=== PATIENT | female | born 1970 | race Caucasian/White ===

== ENCOUNTER 2018-07-22 09:52 | Emergency (ER) | payer OTHER ==
[~2018-07-22] VITALS: Ht 162.6 cm; Wt 86.2 kg
[2018-07-22 11:14] LABS: Basophils # (auto) 0.1 uL; Basophils % (auto) 1.1 % (0.0-2.0); Eosinophils # (auto) 0.2 uL; Eosinophils % (auto) 2.7 % (0.0-7.0); Hematocrit 42.5 % (36.0-46.0); Hemoglobin 14.6 g/dL (12.2-16.2); Lymphocytes % (auto) 27.2 % (10.0-50.0); Mean Corpuscular Hemoglobin 30.4 pg (28.0-32.0); Mean Corpuscular Hgb Conc. 34.3 g/dL (32.0-36.0); Mean Corpuscular Volume 88.7 fL (80.0-100.0); Monocytes # (auto) 0.5 uL; Monocytes % (auto) 6.9 % (0.0-12.0); Neutrophils # (auto) 4.5 uL; Neutrophils % (auto) 62.1 % (37.0-80.0); Nucleated Red Blood Cells % 0.2 %; Platelet Count (auto) 270 10^3/uL (140-450); Red Cell Distribution Width 13.7 % (11.8-14.3); White Blood Cell 7.3 10^3/uL (4.4-10.8)
[2018-07-22 11:30] LABS: Alanine Aminotransferase 47 U/L (13-56); Albumin 3.5 g/dL (3.4-5.0); Alkaline Phosphatase 64 U/L (45-117); Anion Gap 10 (5-15); Aspartate Aminotransferase 24 U/L (15-37); BUN/Creatinine Ratio 9.8; Bilirubin, Total 0.4 mg/dL (0.2-1.0); Blood Urea Nitrogen 9 mg/dL (7-18); Calcium 8.2 mg/dL (8.5-10.1); Carbon Dioxide 21 mmol/L (21-32); Chloride 108 mmol/L (98-107); GFR African American 84 mL/min; GFR Non-African American 69 mL/min; Glucose 140 mg/dL (74-106); Magnesium 2.3 mg/dL (1.6-2.6); Potassium 3.9 mmol/L (3.5-5.1); Sodium 139 mmol/L (136-145); Total Protein 7.1 g/dL (6.4-8.2)
[2018-07-22 11:39] VITALS: BP 117/75
[2018-07-22] MEDS ORDERED: ACETAMINOPHEN 325 MG TAB PO ONE (12:00)
== END 2018-07-22 12:47 | disposition home or self-care (01) ==
LOC: ER 09:52
DX: R07.89 Other chest pain (principal); G43.909 Migraine, unspecified, not intractable, without status migrainosus; E78.5 Hyperlipidemia, unspecified; Z90.49 Acquired absence of other specified parts of digestive tract; Z90.89 Acquired absence of other organs; Z90.710 Acquired absence of both cervix and uterus
CPT/HCPCS: 36415; 70450; 71046; 80053; 83735; 84484; 85025; 93005; 94761

== ENCOUNTER 2020-05-18 21:55 | Inpatient (IN) | payer OTHER ==
[~2020-05-18] VITALS: Ht 162.6 cm; Wt 81.6 kg
[2020-05-19 00:48] LABS: Basophils # (auto) 0 10 ^3/uL (0-0.2); Basophils % (auto) 0.4 % (0.0-2.0); Eosinophils # (auto) 0 10 ^3/uL (0-0.8); Eosinophils % (auto) 0.5 % (0.0-7.0); Lymphocytes # (auto) 1.4 10 ^3/uL (0.4-5.4); Lymphocytes % (auto) 28.5 % (10.0-50.0); Mean Corpuscular Hemoglobin 29.8 pg (28.0-32.0); Mean Corpuscular Hgb Conc. 34.2 g/dL (32.0-36.0); Mean Corpuscular Volume 87.2 fL (80.0-100.0); Monocytes # (auto) 0.4 10 ^3/uL (0-1.3); Monocytes % (auto) 8.3 % (0.0-12.0); Neutrophils % (auto) 62.3 % (37.0-80.0); Nucleated Red Blood Cells % 0.2 %; Platelet Count (auto) 161 10^3/uL (140-450); Red Blood Cells 5.38 10^6/uL (4.0-5.20); Red Cell Distribution Width 13.6 % (11.8-14.3); White Blood Cell 4.8 10^3/uL (4.4-10.8)
[2020-05-19 01:09] LABS: Albumin 3.8 g/dL (3.4-5.0); Anion Gap 6 (5-15); Blood Urea Nitrogen 11 mg/dL (7-18); Calcium 8.7 mg/dL (8.5-10.1); Carbon Dioxide 25 mmol/L (21-32); Chloride 102 mmol/L (98-107); Glucose 233 mg/dL (74-106); Magnesium 2.4 mg/dL (1.6-2.6); Potassium 3.3 mmol/L (3.5-5.1); Sodium 133 mmol/L (136-145)
[2020-05-19 01:11] LABS: Alanine Aminotransferase 97 U/L (13-56); BUN/Creatinine Ratio 11.1; GFR African American 77 mL/min; GFR Non-African American 63 mL/min
[2020-05-19 01:16] LABS: Alkaline Phosphatase 75 U/L (45-117); Aspartate Aminotransferase 53 U/L (15-37); Bilirubin, Total 0.9 mg/dL (0.2-1.0); Total Protein 8.5 g/dL (6.4-8.2)
[2020-05-19] MEDS ORDERED: SODIUM CHLORIDE 0.9% 1,000 ML IV SCH (06:32)
[2020-05-19] MEDS ORDERED: DEXTROSE (50%) 50ML SYRG IV PRN (06:45)
[2020-05-19] MEDS ORDERED: ALBUTEROL SULF 2.5 MG/0.5ML(0.5%) NEB SOLN NEB PRN (06:45)
[2020-05-19] MEDS ORDERED: DOCUSATE SOD 100 MG CAP PO PRN (06:45)
[2020-05-19] MEDS ORDERED: METOCLOPRAMIDE HCL 5MG/ml INJ 2ml VIAL IV PRN (06:45)
[2020-05-19] MEDS ORDERED: MORPHINE SULF INJ 2 MG/ML SYRINGE 1ML IV PRN ×2 (06:45→14:30)
[2020-05-19] MEDS ORDERED: IPRATROPIUM BROM 0.5 MG/2.5ML INH SOL NEB PRN (06:45)
[2020-05-19] MEDS: ACETAMINOPHEN 325 MG TAB PO PRN (09:43)
[2020-05-19] MEDS ORDERED: methylPREDNISolone SOD SUCC 125 MG/2 ML VL IV SCH (10:00)
[2020-05-19 10:26] LABS: Basophils # (auto) 0 10 ^3/uL (0-0.2); Basophils % (auto) 0.3 % (0.0-2.0); Eosinophils # (auto) 0 10 ^3/uL (0-0.8); Eosinophils % (auto) 0.7 % (0.0-7.0); Hematocrit 44.6 % (36.0-46.0); Hemoglobin 15.2 g/dL (12.2-16.2); Lymphocytes # (auto) 1.3 10 ^3/uL (0.4-5.4); Lymphocytes % (auto) 35.1 % (10.0-50.0); Mean Corpuscular Hemoglobin 29.4 pg (28.0-32.0); Mean Corpuscular Volume 86.4 fL (80.0-100.0); Monocytes # (auto) 0.4 10 ^3/uL (0-1.3); Monocytes % (auto) 10.3 % (0.0-12.0); Neutrophils % (auto) 53.6 % (37.0-80.0); Nucleated Red Blood Cells % 0.2 %; Platelet Count (auto) 146 10^3/uL (140-450); Red Blood Cells 5.16 10^6/uL (4.0-5.20); Red Cell Distribution Width 13.3 % (11.8-14.3); White Blood Cell 3.7 10^3/uL (4.4-10.8)
[2020-05-19 10:43] LABS: Anion Gap 7 (5-15); Blood Urea Nitrogen 12 mg/dL (7-18); Calcium 8.9 mg/dL (8.5-10.1); Carbon Dioxide 25 mmol/L (21-32); Chloride 102 mmol/L (98-107); Glucose 164 mg/dL (74-106); Sodium 134 mmol/L (136-145)
[2020-05-19 10:45] LABS: Partial Thromboplastin Time 26.1 sec (23.64-32.05)
[2020-05-19 10:48] LABS: GFR African American 98 mL/min; GFR Non-African American 81 mL/min
[2020-05-19] MEDS: ACCU-CHEK COMFORT CURVE STRIP VI SCH ×3 (12:00→23:56)
[2020-05-19] MEDS: InsuLIN REG 1unit/0.01ml Soln (100units/ml) SC SCH ×3 (12:00→23:56)
[2020-05-19] MEDS ORDERED: POTASSIUM EFFERVESENT TAB 25 MEQ PO ONE (12:15)
[2020-05-19] MEDS ORDERED: ONDANSETRON HCL 4 MG/2 ML VIAL ONE (12:34)
[2020-05-19] MEDS: HYDROcodone-ACET 5/325MG TAB PO PRN ×2 (12:53→18:50)
[2020-05-19] MEDS: ONDANSETRON HCL 4 MG/2 ML VIAL IV PRN (12:53)
[2020-05-19] MEDS ORDERED: DOXYCYCLINE 100 MG TAB/CAP PO ONE (14:30)
[2020-05-19] MEDS ORDERED: POTASSIUM CHL 10 Meq TABLET PO ONE (14:30)
[2020-05-19] MEDS ORDERED: FUROSEMIDE 20 MG/2 ML VIAL IV ONE (14:30)
--- NOTE | 2020-05-19 16:37 | NUR ---
1605 05/19/20 - Contacted [facility] at [phone] requesting authorization for continued inpatient stay. Spoke with quality assurance analyst Latha who stated patient is authorized continued inpatient stay.
[2020-05-19] MEDS ORDERED: INSULIN LANTUS (GLARGINE) 1 /0.01ml (100units/ml) SC SCH (22:00)
[2020-05-19] MEDS: DOXYCYCLINE 100 MG TAB/CAP PO SCH (23:55)
[2020-05-19] MEDS: DexAMETHasone 4 MG TAB PO SCH (23:55)
[2020-05-20] MEDS: InsuLIN REG 1unit/0.01ml Soln (100units/ml) SC SCH ×3 (05:56→17:23)
[2020-05-20] MEDS: ACCU-CHEK COMFORT CURVE STRIP VI SCH ×3 (05:57→18:04)
[2020-05-20 06:37] LABS: Magnesium 2.5 mg/dL (1.6-2.6)
[2020-05-20] MEDS: POTASSIUM CHL 10 Meq TABLET PO SCH (11:15)
[2020-05-20] MEDS: FUROSEMIDE 20 MG/2 ML VIAL IV SCH (11:15)
[2020-05-20] MEDS: DexAMETHasone 4 MG TAB PO SCH ×2 (11:15→22:31)
[2020-05-20] MEDS: DOXYCYCLINE 100 MG TAB/CAP PO SCH ×2 (11:16→22:31)
[2020-05-20] MEDS: ACETAMINOPHEN 325 MG TAB PO PRN (11:17)
[2020-05-20] MEDS: HYDROcodone-ACET 5/325MG TAB PO PRN (12:40)
[2020-05-20] MEDS: ONDANSETRON HCL 4 MG/2 ML VIAL IV PRN ×2 (12:40→22:33)
[2020-05-20] MEDS ORDERED: LORazepam 2MG/ML-1ML VIAL IV ONE (14:00)
[2020-05-20] MEDS ORDERED: ZINC SULFATE 220mg CAP or TAB PO ONE ×2 (15:30→16:30)
[2020-05-20] MEDS ORDERED: CHOLECALCIFEROL (VITD3) 1,000UNIT=25mCg TAB PO ONE ×2 (15:30→16:30)
[2020-05-20] MEDS ORDERED: ASCORBIC ACID 500 MG TAB PO ONE ×2 (15:30→16:30)
[2020-05-20] MEDS ORDERED: ENOXAPARIN SOD 100 MG/1 ML SYRINGE SC ONE ×2 (15:30→16:30)
[2020-05-20] MEDS ORDERED: ACETAMINOPHEN 650 mg PER 20 mL UD PO ONE (16:30)
[2020-05-20] MEDS ORDERED: diphenhdrAMINE HCL 50 MG/1 ML VL IV ONE (16:30)
[2020-05-20] MEDS ORDERED: methylPREDNISolone SOD SUCC 40 MG/ML VL IV ONE (16:30)
[2020-05-20] MEDS ORDERED: TOCILIZUMAB 400 MG in SODIUM CHL 0.9% 80 ML IV ONE (17:00)
--- NOTE | 2020-05-20 17:29 | NUR ---
1600 05/20/20 - Contacted [facility] at [phone], requesting authorization for continued inpatient stay. Spoke with epic analyst Dino who stated there were no COVID beds available and provided authorization [id number] for continued inpatient stay.
[2020-05-20] MEDS ORDERED: INSULIN LANTUS (GLARGINE) 1 /0.01ml (100units/ml) SC SCH (22:00)
[2020-05-20] MEDS: ENOXAPARIN SOD 100 MG/1 ML SYRINGE SC SCH (22:32)
[2020-05-21] MEDS: InsuLIN REG 1unit/0.01ml Soln (100units/ml) SC SCH ×5 (00:11→23:32)
[2020-05-21] MEDS: HYDROcodone-ACET 5/325MG TAB PO PRN ×2 (00:12→19:49)
[2020-05-21] MEDS: ACCU-CHEK COMFORT CURVE STRIP VI SCH ×5 (00:12→23:32)
[2020-05-21 08:35] LABS: Basophils # (auto) 0 10 ^3/uL (0-0.2); Basophils % (auto) 0.4 % (0.0-2.0); Eosinophils # (auto) 0 10 ^3/uL (0-0.8); Hematocrit 43.4 % (36.0-46.0); Hemoglobin 14.5 g/dL (12.2-16.2); Lymphocytes % (auto) 14.8 % (10.0-50.0); Mean Corpuscular Hemoglobin 29.2 pg (28.0-32.0); Mean Corpuscular Hgb Conc. 33.4 g/dL (32.0-36.0); Mean Corpuscular Volume 87.2 fL (80.0-100.0); Monocytes # (auto) 0.5 10 ^3/uL (0-1.3); Monocytes % (auto) 6.8 % (0.0-12.0); Neutrophils # (auto) 5.5 10 ^3/uL (1.6-8.6); Nucleated Red Blood Cells % 0.1 %; Platelet Count (auto) 248 10^3/uL (140-450); Red Blood Cells 4.97 10^6/uL (4.0-5.20); Red Cell Distribution Width 13.6 % (11.8-14.3)
[2020-05-21 08:51] LABS: Albumin 3.2 g/dL (3.4-5.0); Calcium 8.9 mg/dL (8.5-10.1); Potassium 3.9 mmol/L (3.5-5.1)
[2020-05-21 09:05] LABS: BUN/Creatinine Ratio 20.3; Bilirubin, Total 0.5 mg/dL (0.2-1.0); CRP High Sensitivity 1.79 mg/dL (< 0.3); Total Protein 7.4 g/dL (6.4-8.2)
[2020-05-21] MEDS: CHOLECALCIFEROL (VITD3) 1,000UNIT=25mCg TAB PO SCH (10:15)
[2020-05-21] MEDS: ZINC SULFATE 220mg CAP or TAB PO SCH (10:16)
[2020-05-21] MEDS: ASCORBIC ACID 500 MG TAB PO SCH (10:16)
[2020-05-21] MEDS: DexAMETHasone 4 MG TAB PO SCH ×2 (10:16→21:47)
[2020-05-21] MEDS: PANTOPRAZOLE 40 MG TAB PO SCH (10:17)
[2020-05-21] MEDS: POTASSIUM CHL 10 Meq TABLET PO SCH (10:17)
[2020-05-21] MEDS: DOXYCYCLINE 100 MG TAB/CAP PO SCH ×2 (10:17→21:46)
[2020-05-21] MEDS: FUROSEMIDE 20 MG/2 ML VIAL IV SCH (10:18)
[2020-05-21] MEDS: ENOXAPARIN SOD 100 MG/1 ML SYRINGE SC SCH (10:19)
[2020-05-21] MEDS ORDERED: methylPREDNISolone SOD SUCC 40 MG/ML VL IV ONE (12:30)
[2020-05-21] MEDS ORDERED: diphenhdrAMINE HCL 50 MG/1 ML VL IV ONE (12:30)
[2020-05-21] MEDS ORDERED: ACETAMINOPHEN 650 mg PER 20 mL UD PO ONE (12:30)
[2020-05-21] MEDS ORDERED: diphenhdrAMINE HCL 50 MG/1 ML VL ONE (12:48)
[2020-05-21] MEDS ORDERED: TOCILIZUMAB 400 MG in SODIUM CHL 0.9% 80 ML IV ONE (13:00)
--- NOTE | 2020-05-21 14:03 | NUR ---
1356 05/21/20 - [facility] at [phone], requesting authorization for continued inpatient stay. Spoke with business rules analyst Chey who provided authorization [id number] for continued inpatient stay.
--- NOTE | 2020-05-21 18:12 | NUR ---
Telemetry admit from ER GIUSEPPE DUENAS admitted to Telemetry unit after SBAR received. Patient oriented to STEPHON COHENRN primary RN, unit,245 room,b bed, and unit policies regarding patient care and visiting hours. Patient now on continuous telemetry monitoring, tele box #7 and telemetry reading on arrival to unit is sr SR 80. Patient placed on bedside oxygen, weighed by bedscale and encouraged to call if they need something. All questions and concerns addressed, patient verbalized understanding. Note:
[2020-05-21 18:36] VITALS: BP 109/75
--- NOTE | 2020-05-21 19:30 | NUR ---
Opening Shift Note Assumed care of patient, awake and alert. No S/S of distress/SOB. Instructed on POC and to call for assist PRN, will continue to monitor for changes Q1hr and PRN.
[2020-05-21] MEDS: ONDANSETRON HCL 4 MG/2 ML VIAL IV PRN (19:49)
--- NOTE | 2020-05-21 19:49 | NUR ---
Pain/Nausea Patient c/o nausea and pain 6/10 to lower back, pain medication administered.
--- NOTE | 2020-05-21 20:49 | NUR ---
Re Pain Patient resting with eyes closed, no sign of pain or distress.
[2020-05-21] MEDS: LORazepam 0.5 MG TAB PO PRN (21:46)
[2020-05-21] MEDS: INSULIN LANTUS (GLARGINE) 1 /0.01ml (100units/ml) SC SCH (21:47)
[2020-05-21] MEDS: ENOXAPARIN SOD 40 MG/0.4 ML SYRINGE SC SCH (21:47)
[2020-05-21 22:00] VITALS: BP_SYST 116; BP_SYST 153; BP_DIAS 86; BP_DIAS 89
[2020-05-22 05:28] VITALS: BP 92/61
[2020-05-22] MEDS: ACCU-CHEK COMFORT CURVE STRIP VI SCH ×4 (06:15→23:46)
[2020-05-22] MEDS: InsuLIN REG 1unit/0.01ml Soln (100units/ml) SC SCH ×4 (06:15→23:47)
--- NOTE | 2020-05-22 07:01 | NUR ---
Closing Note Patient status not change,endorsed care to dayshift nurse.
[2020-05-22 08:15] VITALS: BP 120/83
[2020-05-22] MEDS: ENOXAPARIN SOD 40 MG/0.4 ML SYRINGE SC SCH ×2 (10:00→22:04)
[2020-05-22] MEDS: DexAMETHasone 4 MG TAB PO SCH ×2 (10:00→22:03)
[2020-05-22] MEDS: ZINC SULFATE 220mg CAP or TAB PO SCH (10:00)
[2020-05-22] MEDS: DOXYCYCLINE 100 MG TAB/CAP PO SCH ×2 (10:00→22:04)
[2020-05-22] MEDS: PANTOPRAZOLE 40 MG TAB PO SCH (10:00)
[2020-05-22] MEDS: POTASSIUM CHL 10 Meq TABLET PO SCH (10:00)
[2020-05-22] MEDS: ASCORBIC ACID 500 MG TAB PO SCH (10:01)
[2020-05-22] MEDS: CHOLECALCIFEROL (VITD3) 1,000UNIT=25mCg TAB PO SCH (10:01)
[2020-05-22] MEDS: FUROSEMIDE 20 MG/2 ML VIAL IV SCH (10:02)
[2020-05-22 12:14] VITALS: BP 107/69
[2020-05-22] MEDS: hydrOXYchloroQUINE SULFATE 200 MG TAB PO SCH ×2 (12:45→22:03)
--- NOTE | 2020-05-22 14:13 | NUR ---
Nutrition Assessment Note please see attached link for complete assessment Est energy needs BW 70 [id number] kcal (23-25 kcal/kg), Est protein needs 70-77 g (1.0-1.1g/kg BW) will reassess prn. Addendum: 05/22/20 at [address] Amended: Links added.
[2020-05-22 16:40] VITALS: BP 114/77
--- NOTE | 2020-05-22 19:25 | NUR ---
opening note pt is A&ox4. respirations even and nonlabored on 4Lnc. pt is ambulatory, however weak. pt encouraged to call for assistance when attempting to use bedside commode. pt has a non productive cough, and is SOB on exertion. POC discussed with pt. bed in low locked position, call light within reach.
[2020-05-22] MEDS: HYDROcodone-ACET 5/325MG TAB PO PRN (20:03)
[2020-05-22] MEDS: ONDANSETRON HCL 4 MG/2 ML VIAL IV PRN (20:08)
[2020-05-22 22:00] VITALS: BP 111/74
[2020-05-22] MEDS: INSULIN LANTUS (GLARGINE) 1 /0.01ml (100units/ml) SC SCH (22:05)
[2020-05-22] MEDS: LORazepam 0.5 MG TAB PO PRN (23:46)
[2020-05-23] MEDS: ACCU-CHEK COMFORT CURVE STRIP VI SCH ×4 (05:43→23:30)
[2020-05-23] MEDS: InsuLIN REG 1unit/0.01ml Soln (100units/ml) SC SCH ×4 (05:47→23:41)
[2020-05-23 05:55] VITALS: BP 109/71
--- NOTE | 2020-05-23 06:35 | NUR ---
Closing note 45B.pt A&Ox4. respirations even and nonlabored on 4Lnc. no s/s of pain or respiratory distress at this time. pt is comfortably resting in left lateral position with eyes closed. Endorsed care to day shift RN. bed in low locked position, call light within reach. 46A. Pt is awake and alert x4. respirations are even and nonlabored on 15L non rebreather mask. Spo2 saturation is currently at 89-90%. No fever at this time. no c/o pain or discomfort. Endorsed care to day shift RN. Bed in low locked position, call light within reach. 48A. Pt is resting in semi fowlers with the HOB at 30 degrees. Pt is on 15L non rebreather mask. Spo2 saturations are currently at 92%. pt is resting comfortably at this time. Endorsed care to day shift RN. Bed in low locked position, call light within reach. 51B. Pt is A&Ox4. respirations even and nonlabored on 4Lnc. Spo2 saturations are at 93no s/s of pain or discomfort at this time. pt is ambulatory. Addendum: 05/23/20 at 0643 by Oskar Bishop RN wrong pt.
[2020-05-23 06:48] LABS: Basophils # (auto) 0 10 ^3/uL (0-0.2); Basophils % (auto) 0.8 % (0.0-2.0); Eosinophils # (auto) 0 10 ^3/uL (0-0.8); Eosinophils % (auto) 0.1 % (0.0-7.0); Hematocrit 44.1 % (36.0-46.0); Hemoglobin 15.1 g/dL (12.2-16.2); Lymphocytes # (auto) 1.5 10 ^3/uL (0.4-5.4); Lymphocytes % (auto) 22.4 % (10.0-50.0); Mean Corpuscular Hemoglobin 29.6 pg (28.0-32.0); Mean Corpuscular Hgb Conc. 34.1 g/dL (32.0-36.0); Mean Corpuscular Volume 86.7 fL (80.0-100.0); Monocytes # (auto) 0.6 10 ^3/uL (0-1.3); Monocytes % (auto) 9.3 % (0.0-12.0); Neutrophils # (auto) 4.4 10 ^3/uL (1.6-8.6); Neutrophils % (auto) 67.4 % (37.0-80.0); Nucleated Red Blood Cells % 0.2 %; Platelet Count (auto) 277 10^3/uL (140-450); Red Blood Cells 5.09 10^6/uL (4.0-5.20); Red Cell Distribution Width 13.2 % (11.8-14.3); White Blood Cell 6.5 10^3/uL (4.4-10.8)
[2020-05-23 07:09] LABS: Albumin 3.2 g/dL (3.4-5.0); Calcium 9.1 mg/dL (8.5-10.1); Potassium 4.2 mmol/L (3.5-5.1)
[2020-05-23 07:13] LABS: BUN/Creatinine Ratio 21.6; Bilirubin, Total 0.5 mg/dL (0.2-1.0); Total Protein 7.2 g/dL (6.4-8.2)
--- NOTE | 2020-05-23 07:15 | NUR ---
Closing note pt A&Ox4. respirations even and nonlabored on 4Lnc. no s/s of pain or respiratory distress at this time. pt is comfortably resting in left lateral position with eyes closed. Endorsed care to day shift RN. bed in low locked position, call light within reach.
--- NOTE | 2020-05-23 07:48 | NUR ---
RT NOTE: WENT TO PTS ROOM TO ASSESS SPO2, PT IS CURRENTLY ON 4L NC, HR 59, SPO2 93% RR 18, NO DISTRESS NOTED AT THIS TIME. WILL CONTINUE TO MONITOR PT.
--- NOTE | 2020-05-23 07:51 | NUR ---
1600 05/22/20 - Contacted [facility] at [phone] requesting update on transfer to [facility]. Spoke with climate change analyst Cj who stated currently there are no beds available. I requested authorization for continued inpatient stay. PerCj authorization [id number] has been extended for continued inpatient stay.
[2020-05-23 09:21] VITALS: BP 99/66
[2020-05-23] MEDS: FUROSEMIDE 20 MG/2 ML VIAL IV SCH (10:37)
[2020-05-23] MEDS: CHOLECALCIFEROL (VITD3) 1,000UNIT=25mCg TAB PO SCH (10:37)
[2020-05-23] MEDS: ENOXAPARIN SOD 40 MG/0.4 ML SYRINGE SC SCH ×2 (10:38→21:49)
[2020-05-23] MEDS: DOXYCYCLINE 100 MG TAB/CAP PO SCH ×2 (10:38→21:49)
[2020-05-23] MEDS: PANTOPRAZOLE 40 MG TAB PO SCH (10:38)
[2020-05-23] MEDS: ASCORBIC ACID 500 MG TAB PO SCH (10:38)
[2020-05-23] MEDS: hydrOXYchloroQUINE SULFATE 200 MG TAB PO SCH ×2 (10:38→21:49)
[2020-05-23] MEDS: ZINC SULFATE 220mg CAP or TAB PO SCH (10:39)
[2020-05-23] MEDS: POTASSIUM CHL 10 Meq TABLET PO SCH (10:39)
[2020-05-23] MEDS: DexAMETHasone 4 MG TAB PO SCH ×2 (10:39→21:48)
[2020-05-23 13:10] VITALS: BP 102/74
[2020-05-23 17:18] VITALS: BP 101/59
--- NOTE | 2020-05-23 19:25 | NUR ---
Opening note pt is A&Ox4. Respirations even and nonlabored on 2L nc. pt is experiencing generalized weakness, however explains that she feels much better now than she did earlier in the day. no s/s of distress at this time. bed in low locked position, call light within reach.
[2020-05-23 21:48] VITALS: BP 115/80
[2020-05-23] MEDS: ONDANSETRON HCL 4 MG/2 ML VIAL IV PRN (21:50)
[2020-05-23] MEDS: HYDROcodone-ACET 5/325MG TAB PO PRN (21:50)
[2020-05-23] MEDS: INSULIN LANTUS (GLARGINE) 1 /0.01ml (100units/ml) SC SCH (21:51)
[2020-05-23] MEDS: AMOXICILLIN/CLAVULAN 500 MG TAB PO SCH (22:31)
[2020-05-23] MEDS: LORazepam 0.5 MG TAB PO PRN (23:32)
[2020-05-24 05:00] VITALS: BP 112/75
[2020-05-24] MEDS: ACCU-CHEK COMFORT CURVE STRIP VI SCH ×3 (05:50→17:18)
[2020-05-24] MEDS: AMOXICILLIN/CLAVULAN 500 MG TAB PO SCH ×3 (05:50→22:00)
[2020-05-24] MEDS: InsuLIN REG 1unit/0.01ml Soln (100units/ml) SC SCH ×3 (05:59→17:19)
--- NOTE | 2020-05-24 07:08 | NUR ---
Closing note pt resting in prone position with eyes closed. Pt is on 3Lnc. respirations even and nonlabored. No s/s of pain or distress at this time. Bed in low locked position, call light within reach. Endorsed care to day shift RN.
--- NOTE | 2020-05-24 07:58 | NUR ---
OPENING SHIFT NOTE Assumed care of patient. PT is awake and alert x4. Patient is on o2 at 3L via NC. No sign/symptoms of distress noted. Instructed on plan of care and encouraged to call for assistance as needed, patient verbalized understanding. Bed is locked in lowest position, side rails x 2 are up, call light is within reach, and bed alarm is on. Will continue to monitor.
[2020-05-24] MEDS: FUROSEMIDE 20 MG/2 ML VIAL IV SCH (09:48)
[2020-05-24] MEDS: ASCORBIC ACID 500 MG TAB PO SCH (09:49)
[2020-05-24] MEDS: PANTOPRAZOLE 40 MG TAB PO SCH (09:50)
[2020-05-24] MEDS: DOXYCYCLINE 100 MG TAB/CAP PO SCH ×2 (09:50→22:38)
[2020-05-24] MEDS: DexAMETHasone 4 MG TAB PO SCH ×2 (09:50→22:37)
[2020-05-24] MEDS: ZINC SULFATE 220mg CAP or TAB PO SCH (09:50)
[2020-05-24] MEDS: POTASSIUM CHL 10 Meq TABLET PO SCH (09:50)
[2020-05-24] MEDS: CHOLECALCIFEROL (VITD3) 1,000UNIT=25mCg TAB PO SCH (09:50)
[2020-05-24] MEDS: hydrOXYchloroQUINE SULFATE 200 MG TAB PO SCH ×2 (09:50→22:37)
[2020-05-24] MEDS: ENOXAPARIN SOD 40 MG/0.4 ML SYRINGE SC SCH ×2 (09:50→22:38)
[2020-05-24 13:00] VITALS: BP 100/70
[2020-05-24 17:00] VITALS: BP 106/71
--- NOTE | 2020-05-24 19:25 | NUR ---
OPENING SHIFT NOTE Assumed care of patient who is a&o X4. Currently on 3L NC with no s/s of distress. Denies pain, but states that she feels "very weak and dizzy". PIV in left forearm is intact and patent. Flushed with 10ml NS. Patient is ambulatory at baseline, currently [place] able [place] [facility] [place] POC discussed and all questions answered. Bed is in low locked position with side rails up x2. Call light is within reach and patient encouraged to call for assistance when needed. Will continue to monitor for changes PRN.
[2020-05-24 21:57] VITALS: BP 114/69
[2020-05-24] MEDS: ONDANSETRON HCL 4 MG/2 ML VIAL IV PRN (22:39)
[2020-05-24] MEDS: ACETAMINOPHEN 325 MG TAB PO PRN (22:44)
[2020-05-24] MEDS: INSULIN LANTUS (GLARGINE) 1 /0.01ml (100units/ml) SC SCH (22:49)
--- NOTE | 2020-05-24 23:30 | NUR ---
Room change Patient transferred to room 251-A via wheel chair with all personal belongings. Patient tolerated well.
--- NOTE | 2020-05-24 23:36 | NUR ---
Respiratory note: PT SEEN AND ASSESSED AT THIS TIME. NO DISTRESS NOTED. HR 70 RR 18 SP02 96% ON 3L NASAL CANNULA.
[2020-05-24] MEDS: LORazepam 0.5 MG TAB PO PRN (23:43)
[2020-05-25] MEDS: InsuLIN REG 1unit/0.01ml Soln (100units/ml) SC SCH ×4 (00:29→17:58)
--- NOTE | 2020-05-25 03:35 | NUR ---
Patient sating at 96% on 3L NC. Titrated down to 2L NC. Will continue to monitor.
[2020-05-25] MEDS: HYDROcodone-ACET 5/325MG TAB PO PRN (04:35)
[2020-05-25] MEDS: ONDANSETRON HCL 4 MG/2 ML VIAL IV PRN (04:36)
[2020-05-25 05:00] VITALS: BP 116/84
[2020-05-25] MEDS: ACCU-CHEK COMFORT CURVE STRIP VI SCH ×4 (05:30→17:57)
[2020-05-25] MEDS: AMOXICILLIN/CLAVULAN 500 MG TAB PO SCH ×3 (05:38→22:25)
[2020-05-25 08:57] VITALS: BP 105/72
[2020-05-25] MEDS: FUROSEMIDE 20 MG/2 ML VIAL IV SCH (11:56)
[2020-05-25] MEDS: POTASSIUM CHL 10 Meq TABLET PO SCH (11:57)
[2020-05-25] MEDS: DexAMETHasone 4 MG TAB PO SCH ×2 (11:57→22:25)
[2020-05-25] MEDS: DOXYCYCLINE 100 MG TAB/CAP PO SCH ×2 (11:57→22:25)
[2020-05-25] MEDS: PANTOPRAZOLE 40 MG TAB PO SCH (11:57)
[2020-05-25] MEDS: ZINC SULFATE 220mg CAP or TAB PO SCH (11:57)
[2020-05-25] MEDS: hydrOXYchloroQUINE SULFATE 200 MG TAB PO SCH ×2 (11:58→22:25)
[2020-05-25] MEDS: ENOXAPARIN SOD 40 MG/0.4 ML SYRINGE SC SCH ×2 (11:59→22:26)
[2020-05-25] MEDS: ASCORBIC ACID 500 MG TAB PO SCH (11:59)
[2020-05-25] MEDS: CHOLECALCIFEROL (VITD3) 1,000UNIT=25mCg TAB PO SCH (12:00)
[2020-05-25 12:34] VITALS: BP 105/71
--- NOTE | 2020-05-25 13:00 | NUR ---
UA SAMPLE COLLECTED AND SENT TO LAB
[2020-05-25 13:18] LABS: Urine Bacteria NONE SEEN /hpf (None Seen); Urine Blood Negative /uL (Negative); Urine Specific Gravity 1.014 (1.001-1.035); Urine WBC 1 /hpf (0 - 5)
--- NOTE | 2020-05-25 14:42 | NUR ---
Nutrition Followup Note Wt 84.1kg Pt is covid positive in the covid wing. pt has a diet order of CCHO 60g. Pt appetite is fair aeb pt with inadequate po intake aeb pt with 50% po intake x 3 days per RN note. Will continue to monitor po intake and need for additional oral supplement Est energy needs BW 70 [id number] kcal (23-25 kcal/kg), Est protein needs 70-77 g (1.0-1.1g/kg BW) will reassess prn. Labs: Gluc 286H, BUN 19H, Alb 3.2L BM: 1 BM 05/25 per RN note Skin: Bs 18 mod risk, full details in family member caretaker note PES: Altered nutrition related lab values r/t current chronic medical condition aeb hyperglcyemia mild hypoalb Decreased nutrient needs r/t adiposity aeb pt`s high BMI of 33.1 kgm Comments 1) refer to CDE on DC 2) continue current plan of care Expected Outcomes/Goals: pt will have improved labs pt will not gain any more wt F/u mod 3-5 days
[2020-05-25 15:50] LABS: Albumin 3.6 g/dL (3.4-5.0); Calcium 9.8 mg/dL (8.5-10.1); Potassium 4.4 mmol/L (3.5-5.1)
[2020-05-25 15:55] LABS: Bilirubin, Total 0.6 mg/dL (0.2-1.0); Total Protein 7.5 g/dL (6.4-8.2)
[2020-05-25 17:00] VITALS: BP 107/70
[2020-05-25] MEDS: ACETAMINOPHEN 325 MG TAB PO PRN (22:24)
[2020-05-25] MEDS: INSULIN LANTUS (GLARGINE) 1 /0.01ml (100units/ml) SC SCH (22:26)
--- NOTE | 2020-05-25 22:30 | NUR ---
O2 titrated down to 1L NC. Patient is tolerating well; saturation is 94%
[2020-05-25 23:28] VITALS: BP 109/69
[2020-05-26] MEDS: ACCU-CHEK COMFORT CURVE STRIP VI SCH ×4 (00:22→18:00)
[2020-05-26] MEDS: InsuLIN REG 1unit/0.01ml Soln (100units/ml) SC SCH ×4 (00:25→18:00)
[2020-05-26 05:40] VITALS: BP 101/70
[2020-05-26] MEDS: AMOXICILLIN/CLAVULAN 500 MG TAB PO SCH ×2 (06:44→12:07)
[2020-05-26 09:00] VITALS: BP 105/74
[2020-05-26] MEDS: hydrOXYchloroQUINE SULFATE 200 MG TAB PO SCH (09:27)
[2020-05-26] MEDS: FUROSEMIDE 20 MG/2 ML VIAL IV SCH (09:27)
[2020-05-26] MEDS: CHOLECALCIFEROL (VITD3) 1,000UNIT=25mCg TAB PO SCH (09:28)
[2020-05-26] MEDS: ASCORBIC ACID 500 MG TAB PO SCH (09:28)
[2020-05-26] MEDS: DexAMETHasone 4 MG TAB PO SCH (09:28)
[2020-05-26] MEDS: DOXYCYCLINE 100 MG TAB/CAP PO SCH (09:29)
[2020-05-26] MEDS: ACETAMINOPHEN 325 MG TAB PO PRN (09:29)
[2020-05-26] MEDS: ZINC SULFATE 220mg CAP or TAB PO SCH (09:29)
[2020-05-26] MEDS: PANTOPRAZOLE 40 MG TAB PO SCH (09:29)
[2020-05-26] MEDS: ENOXAPARIN SOD 40 MG/0.4 ML SYRINGE SC SCH (09:29)
[2020-05-26] MEDS: POTASSIUM CHL 10 Meq TABLET PO SCH (09:29)
--- NOTE | 2020-05-26 10:43 | NUR ---
PT ON ROOM AIR NOW. TOLERATING WELL.
--- NOTE | 2020-05-26 11:25 | NUR ---
PT ON ROOM AIR AT 92% DENIES DISCOMFORT AT MOMENT.
[2020-05-26 13:00] VITALS: BP 105/75
[2020-05-26] MEDS ORDERED: METF-370 PO (13:47)
[2020-05-26] MEDS ORDERED: ASCO500T11 PO (14:03)
[2020-05-26] MEDS ORDERED: ZINC220T6 PO (14:07)
[2020-05-26] MEDS ORDERED: AMOX500T3 PO (14:07)
[2020-05-26] MEDS ORDERED: PANT40T PO (14:07)
[2020-05-26] MEDS ORDERED: DEX4T PO (14:07)
[2020-05-26 17:23] VITALS: BP 106/73
[2020-05-26 17:27] VITALS: BP 106/73
--- NOTE | 2020-05-26 18:54 | NUR ---
DISCHARGE INSTRUCTIONS PROVIDED TO PT. PT VERBALIZED UNDERSTANDING FOR PRESCRIPTION ORDERS AND FOLLOW UP APPOINTMENT WITH PCP. EDUCATIONAL MATERIAL ON DISEASE MANAGEMENT PROVIDED, ALL QUESTION AND CONCERNS ADDRESSED. IV CATHETER DC'D CATHETER INTACT, NO PHLEBITIS, TELE BOX REMOVED AND RETURNED TO TELE DEPT. PT SAFELY ESCORTED OUT OF UNIT VIA WHEELCHAIR.
== END 2020-05-26 18:54 | disposition home or self-care (01) | DRG 177 ==
LOC: EDBD 21:55 → ER 21:58 → OVERFLOW 21:59 → TELE-EAST 05-21 18:33
PROVIDERS: ADMIT Hospitalist; ATTEND Internal Medicine
DX: U07.1 COVID-19 (principal); J12.89 Other viral pneumonia; J96.00 Acute respiratory failure, unspecified whether with hypoxia or hypercapnia; J98.11 Atelectasis; N39.0 Urinary tract infection, site not specified; B95.2 Enterococcus as the cause of diseases classified elsewhere; E66.01 Morbid (severe) obesity due to excess calories; E87.6 Hypokalemia; I50.9 Heart failure, unspecified; J01.00 Acute maxillary sinusitis, unspecified; E11.65 Type 2 diabetes mellitus with hyperglycemia; M34.9 Systemic sclerosis, unspecified; Z68.30 Body mass index [BMI] 30.0-30.9, adult; Z90.710 Acquired absence of both cervix and uterus; Z90.49 Acquired absence of other specified parts of digestive tract
CPT/HCPCS: 36415; 71045; 80048; 80053; 80061; 81001; 82728; 82962; 83036; 83605; 83615; 83735; 83880; 84132; 84443; 84484; 84702; 85025; 85379; 85610; 85730; 86141; 86850; 86900; 86901; 87040; 87070; 87086; 87088; 87186; 87804; 87880; 93005; G0378; J1815; J2405

== ENCOUNTER 2020-06-15 18:39 | Inpatient (IN) | payer OTHER ==
[~2020-06-15] VITALS: Ht 165.1 cm; Wt 94.0 kg
[~2020-06-15 18:39] MED LIST: AMOX500T3 PO; ASCO500T11 PO; DEX4T PO; METF-370 PO; PANT40T PO; ZINC220T6 PO
[2020-06-15] MEDS ORDERED: SODIUM CHLORIDE 0.9% 500 ML IVB ONE (19:28)
[2020-06-15] MEDS ORDERED: HYDROmorphone HCL 2 MG/ML VL IV ONE (19:30)
[2020-06-15] MEDS ORDERED: ONDANSETRON HCL 4 MG/2 ML VIAL IV ONE (19:30)
[2020-06-15 21:32] LABS: Hematocrit 41.9 % (36.0-46.0); Hemoglobin 14.1 g/dL (12.2-16.2); Mean Corpuscular Hemoglobin 29.4 pg (28.0-32.0); Mean Corpuscular Hgb Conc. 33.5 g/dL (32.0-36.0); Mean Corpuscular Volume 87.7 fL (80.0-100.0); Platelet Count (auto) 140 10^3/uL (140-450); Red Blood Cells 4.78 10^6/uL (4.0-5.20); Red Cell Distribution Width 14.6 % (11.8-14.3); White Blood Cell 5.2 10^3/uL (4.4-10.8)
[2020-06-15 21:37] LABS: Albumin 3.9 g/dL (3.4-5.0); Amylase 63 U/L (25-115); Anion Gap 9 (5-15); Band Neutrophils % (manual) 0; Basophils % (manual) 0 (0.0-2.0); Blast Cells 0; Blood Urea Nitrogen 11 mg/dL (7-18); Calcium 9.1 mg/dL (8.5-10.1); Carbon Dioxide 22 mmol/L (21-32); Chloride 107 mmol/L (98-107); Glucose 230 mg/dL (74-106); Lipase 248 U/L (73-393); Magnesium 2.3 mg/dL (1.6-2.6); Metamyelocytes % 0; Myelocytes % 0; Potassium 3.6 mmol/L (3.5-5.1); Promyelocytes % 0; Sodium 138 mmol/L (136-145)
[2020-06-15 21:39] LABS: Lactic Acid w/Reflex 3.2 mmol/L (0.4-2.0)
[2020-06-15 21:42] LABS: Alanine Aminotransferase 201 U/L (13-56); Alkaline Phosphatase 63 U/L (45-117); Aspartate Aminotransferase 72 U/L (15-37); BUN/Creatinine Ratio 10.7; Bilirubin, Total 0.7 mg/dL (0.2-1.0); CRP High Sensitivity 0.06 mg/dL (< 0.3); GFR African American 73 mL/min; GFR Non-African American 60 mL/min; Total Protein 6.6 g/dL (6.4-8.2)
[2020-06-15 21:48] LABS: INR 0.97 (0.9-1.15)
[2020-06-15 22:23] LABS: Urine Bacteria NONE SEEN /hpf (None Seen); Urine Blood Negative /uL (Negative); Urine WBC <1 /hpf (0 - 5)
[2020-06-15 22:27] LABS: Eosinophils % (manual) 6 (0-7); Lymphocytes % (manual) 49 (10.0-50.0); Monocytes % (manual) 14 (0-12); Reactive Lymphocytes 2
[2020-06-15] MEDS ORDERED: IOHEXOL 350 MG/ML 100ML IJ ONE (22:48)
[2020-06-16] VITALS (7 sets, daily range): BP systolic 112–132; BP diastolic 76–91
[2020-06-16] MEDS ORDERED: DexAMETHasone SOD PHOS 10MG/1ML VIAL INJ ONE (00:45)
[2020-06-16] MEDS ORDERED: ONDANSETRON HCL 4 MG/2 ML VIAL IV ONE (01:00)
[2020-06-16] MEDS ORDERED: DexAMETHasone INJECTION 10 MG in D5W 5% 50 ML IV ONE ×3 (01:15)
[2020-06-16] MEDS ORDERED: ENOXAPARIN SOD 80 MG/0.8ML SYRINGE SC ONE (01:15)
[2020-06-16] MEDS ORDERED: LACTATED RINGER'S 2,000 ML IV ONE (01:15)
[2020-06-16] MEDS ORDERED: DEXTROSE (50%) 50ML SYRG IV PRN ×2 (02:00→15:30)
[2020-06-16] MEDS ORDERED: MORPHINE SULF INJ 2 MG/ML SYRINGE 1ML IV PRN (02:00)
[2020-06-16] MEDS ORDERED: TEMAZEPAM 15 MG CAP PO PRN (02:00)
[2020-06-16] MEDS ORDERED: ACETAMINOPHEN 500 MG TAB PO PRN (02:00)
[2020-06-16] MEDS ORDERED: DOCUSATE SOD 100 MG CAP PO PRN (02:00)
[2020-06-16] MEDS ORDERED: LORazepam 0.5 MG TAB PO PRN (02:00)
[2020-06-16] MEDS: SODIUM CHLORIDE 0.9% 1,000 ML IV SCH ×2 (03:03→21:42)
[2020-06-16] MEDS: DOXYCYCLINE 100 MG TAB/CAP PO SCH ×2 (03:03→08:44)
[2020-06-16] MEDS: ACCU-CHEK COMFORT CURVE STRIP VI SCH ×5 (04:30→21:18)
[2020-06-16] MEDS: InsuLIN REG 1unit/0.01ml Soln (100units/ml) SC SCH ×5 (04:31→21:26)
--- NOTE | 2020-06-16 05:06 | NUR ---
Telemetry admit from ER GIUSEPPE DUENAS admitted to Telemetry unit after SBAR received. Patient oriented to SUSU REDDY RN primary RN, unit, room, bed, and unit policies regarding patient care and visiting hours. Patient now on continuous telemetry monitoring, tele box # 6 SR at 60bpm. Patient placed on bedside oxygen, weighed by bedscale and encouraged to call if they need something. All questions and concerns addressed, patient verbalized understanding.
[2020-06-16] MEDS: ALBUTEROL SULF HFA 90MCG INH 200DOSE IN SCH ×3 (06:00→22:07)
[2020-06-16] MEDS ORDERED: AMPI500C8 PO (06:04)
[2020-06-16] MEDS ORDERED: METR500T PO (06:04)
--- NOTE | 2020-06-16 06:12 | NUR ---
mrsa swab sent patient refused covid swab. per patient " i had my test done on 06-07-20 and my results on the 06-08-20 came back positive for covid, i was told by the nurse in the er that it does not need to be done, the nurse talked to the preparation department supervisor" will endorse care to dayshift rn for calcification of covid swab testing.
--- NOTE | 2020-06-16 06:20 | NUR ---
RECD PT ON ROOM AIR, SPO2 96%, NO S/S OF RESPIRATORY DISTRESS. ALBUTEROL MDI NOT AVAILABLE, WILL NOTIFY PHARMACY. CONTINUE WITH CARE.
--- NOTE | 2020-06-16 07:10 | NUR ---
OPENING SHIFT NOTE ASSUMED CARE OF PATIENT FROM QA SPECIALIST RN. PATIENT HAS NO S/S OF DISTRESS/SOB OR PAIN. INSTRUCTED PATIENT ON POC, PATIENT VERBALIZED UNDERSTANDING. PATIENT HAD A MODERATE BM WITH SCANT AMOUNT OF BLOOD, WILL INFORM MD. BED IS IN LOWEST POSITION WITH SIDE RAILS RAISED X2, BED WHEELS LOCKED, AND CALL LIGHT IS WITHIN REACH. WILL CONTINUE TO MONITOR.
--- NOTE | 2020-06-16 07:10 | NUR ---
REPORT GIVEN TO DAYSHIFT RN PATIENT DENIES SOB DISTRESS OR PAIN
[2020-06-16] MEDS: ASCORBIC ACID 1,000 MG TAB PO SCH (08:44)
[2020-06-16] MEDS: ZINC SULFATE 220mg CAP or TAB PO SCH (08:44)
[2020-06-16] MEDS: HYDROcodone-ACET 5/325MG TAB PO PRN ×2 (08:45→17:38)
--- NOTE | 2020-06-16 11:46 | NUR ---
SPOKE WITH DR. VIZCARRA. PER MD SHE WANT PATIENT TO BE SWABBED FOR COVID. INFORMED MD LAST SWAB WAS DONE BY [facility] ON 06/07/2020. IS AWARE. WILL SWAB PATIENT FOR COVID AND WILL SEND TO LAB.
--- NOTE | 2020-06-16 14:43 | NUR ---
Nutrition Assessment Notes Please refer to link for full assessment notes. Est Energy needs: [id number] kcals (17-20 kcal/kgBW) Est Protein needs: 68-86 gms/day (0.8-1.0 gm/kgBW) Will continue to monitor and reassess prn. Addendum: 06/16/20 at [address] Amended: Links added.
--- NOTE | 2020-06-16 18:19 | NUR ---
NO CALL FROM [facility] REGARDING NEGATIVE RESULT. INFORMED SHEET METAL ASSEMBLER AND RIVETER OF NEGATIVE COVID RESULT
--- NOTE | 2020-06-16 18:19 | NUR ---
PER WIRE SPIRAL BINDER DONNA PATIENT CAN BE TRANSFERRED TO ROOM 208 DURING SHIFT CHANGE AND REPORT TO BE GIVEN TO RAG CUTTING MACHINE TENDER KIMBERLY JANSEN
--- NOTE | 2020-06-16 18:20 | NUR ---
PAGED MD MAYORGA REGARDING NEGATIVE RESULT. AWAITING CALL BACK
--- NOTE | 2020-06-16 18:25 | NUR ---
RECEIVED CALL FROM MD MAYORGA INFORMED MD PATIENT IS NEGATIVE AND WILL BE TRANSFERRED TO ROOM 208. WANTS ANOTHER SWAB DONE IN 24 HOURS TO CONFIRM NEGATIVE RESULT BEFORE TRANSFERRING PATIENT TO ROOM 208. INFORMED CHILDBIRTH AND INFANT CARE TEACHER DONNA.
--- NOTE | 2020-06-16 18:55 | NUR ---
CLOSING SHIFT NOTE PATIENT HAS NO S/S OF DISTRESS/SOB OR PAIN AT THIS TIME. WILL ENDORSE CARE TO PRODUCTION HAND RN .
--- NOTE | 2020-06-16 19:20 | NUR ---
Opening Shift Note Assumed care of patient, awake and alert. No S/S of distress/SOB or pain. Instructed on POC and to call for assist PRN. Bed in lowest locked position, call light within reach, side rails up x2. Will continue to monitor for changes Q1hr and PRN.
[2020-06-16] MEDS: INSULIN LANTUS (GLARGINE) 1 /0.01ml (100units/ml) SC SCH (21:27)
[2020-06-17 05:11] VITALS: BP 110/64
[2020-06-17] MEDS: InsuLIN REG 1unit/0.01ml Soln (100units/ml) SC SCH ×4 (05:53→21:57)
[2020-06-17] MEDS: ACCU-CHEK COMFORT CURVE STRIP VI SCH ×4 (05:53→21:53)
[2020-06-17] MEDS: ALBUTEROL SULF HFA 90MCG INH 200DOSE IN SCH ×2 (06:13→14:19)
[2020-06-17 07:18] LABS: Basophils # (auto) 0.1 10 ^3/uL (0-0.2); Basophils % (auto) 1.2 % (0.0-2.0); Eosinophils # (auto) 0 10 ^3/uL (0-0.8); Eosinophils % (auto) 0.4 % (0.0-7.0); Hematocrit 42.1 % (36.0-46.0); Hemoglobin 14.2 g/dL (12.2-16.2); Lymphocytes # (auto) 2.7 10 ^3/uL (0.4-5.4); Lymphocytes % (auto) 23.7 % (10.0-50.0); Mean Corpuscular Hemoglobin 30.2 pg (28.0-32.0); Mean Corpuscular Hgb Conc. 33.8 g/dL (32.0-36.0); Mean Corpuscular Volume 89.3 fL (80.0-100.0); Monocytes % (auto) 8.4 % (0.0-12.0); Neutrophils # (auto) 7.6 10 ^3/uL (1.6-8.6); Neutrophils % (auto) 66.3 % (37.0-80.0); Nucleated Red Blood Cells % 0.1 %; Platelet Count (auto) 155 10^3/uL (140-450); Red Blood Cells 4.71 10^6/uL (4.0-5.20); White Blood Cell 11.5 10^3/uL (4.4-10.8)
[2020-06-17 07:33] LABS: Albumin 3.7 g/dL (3.4-5.0); BUN/Creatinine Ratio 15.2; Calcium 8.8 mg/dL (8.5-10.1); Potassium 4.1 mmol/L (3.5-5.1)
[2020-06-17 07:37] LABS: Bilirubin, Total 0.8 mg/dL (0.2-1.0); Total Protein 6.7 g/dL (6.4-8.2)
[2020-06-17 09:08] VITALS: BP 128/85
[2020-06-17] MEDS: ASCORBIC ACID 1,000 MG TAB PO SCH (09:30)
[2020-06-17] MEDS: ZINC SULFATE 220mg CAP or TAB PO SCH (09:30)
[2020-06-17] MEDS: INSULIN LANTUS (GLARGINE) 1 /0.01ml (100units/ml) SC SCH ×2 (09:32→22:00)
[2020-06-17] MEDS ORDERED: ENOXAPARIN SOD 40 MG/0.4 ML SYRINGE SC SCH (10:00)
[2020-06-17 12:50] VITALS: BP 127/73
[2020-06-17] MEDS: SODIUM CHLORIDE 0.9% 1,000 ML IV SCH (13:48)
[2020-06-17] MEDS: PANTOPRAZOLE 40 MG TAB PO SCH ×2 (14:08→21:52)
[2020-06-17] MEDS: SUCRALFATE 1 GM/10 ML ORAL SUSP PO SCH ×3 (14:09→21:52)
[2020-06-17 17:03] VITALS: BP 120/81
--- NOTE | 2020-06-17 19:45 | NUR ---
TRANSFER TO [facility] PT TAKEN TO ANTE ROOM TO [facility] VIA WHEELCHAIR ALL BELONGING TAKEN WITH PT. PT IS A0X4 IS ON ROOM AIR ,NO S/S OF DISTRESS OR SOB AND NO INCIDENT DURING TIME OF TRANSFER
--- NOTE | 2020-06-17 19:48 | NUR ---
Transfer from COVID unit Pt was transferred from COVID unit to room 205 via wheelchair. Patient is awake, alert, and oriented X 4. No S/S of respiratory distress noted or reported. On RA with SpO@ 93%. Respirations are regular and non-labored. Patient was oriented to the room and unit. Bed in lowest position, brakes locked, side rails X 2 up, call light within reach. POC discussed and patient instructed to call for assistance as needed. Will continue to monitor for changes Q1hr and PRN.
[2020-06-17 20:00] VITALS: BP 104/69
[2020-06-17 21:46] VITALS: BP 109/69
[2020-06-17] MEDS: HYDROcodone-ACET 5/325MG TAB PO PRN (22:10)
[2020-06-17] MEDS ORDERED: ALBUTEROL SULF 2.5 MG/0.5ML(0.5%) NEB SOLN NEB PRN (22:30)
[2020-06-18] VITALS (7 sets, daily range): BP systolic 100–137; BP diastolic 65–91
--- NOTE | 2020-06-18 03:20 | NUR ---
IV insertion IV access obtained via sterile technique by inserting 24 gauge catheter at Left Forearm. IV secured properly. No trauma to site. Patient tolerated procedure well.
[2020-06-18] MEDS: SUCRALFATE 1 GM/10 ML ORAL SUSP PO SCH ×4 (06:31→22:35)
[2020-06-18] MEDS: ACCU-CHEK COMFORT CURVE STRIP VI SCH ×4 (06:31→23:56)
[2020-06-18] MEDS: SODIUM CHLORIDE 0.9% 1,000 ML IV SCH (06:31)
[2020-06-18] MEDS: InsuLIN REG 1unit/0.01ml Soln (100units/ml) SC SCH ×3 (06:39→17:04)
[2020-06-18] MEDS: ONDANSETRON HCL 4 MG/2 ML VIAL IV PRN ×3 (06:43→16:55)
[2020-06-18] MEDS: HYDROcodone-ACET 5/325MG TAB PO PRN ×3 (06:47→16:55)
[2020-06-18] MEDS ORDERED: GOLYTELY 4L KIT PO ONE (09:30)
[2020-06-18] MEDS ORDERED: DEXTROSE (50%) 50ML SYRG IV PRN (10:15)
[2020-06-18] MEDS: PANTOPRAZOLE 40 MG TAB PO SCH ×2 (10:22→22:35)
[2020-06-18] MEDS: INSULIN LANTUS (GLARGINE) 1 /0.01ml (100units/ml) SC SCH ×2 (10:26→22:42)
--- NOTE | 2020-06-18 10:59 | NUR ---
RT NOTE: PRN BREATHING TX. NOT INDICATED AT THIS TIME. PT. DENIES ANY SOB. BREATH SOUNDS ARE CLEAR. PT. HR 76, RR 16, POX 94% R/A. PT. AWARE TO NOTIFY RN IF BREATHING TX. IS NEEDED.
[2020-06-18] MEDS: D5W/ SOD CHL 0.9%/KCL 20MEQ 1,000 ML IV SCH (12:09)
[2020-06-18] MEDS ORDERED: levoFLOXacin 500MG 100 ML IV ONE (14:45)
--- NOTE | 2020-06-18 16:16 | NUR ---
Assessment Patient is a 50-year old female who is alert and oriented. Prior to admission patient lived home with family and functioned independently. Per patient she can care for her own ADLs. Per patient she does not have any medical equipment now or home oxygen. Due to patient hospitalization patient was offered different post discharge plan such as private care givers, skill nursing facility and home health. Per patient she will return home to her prior living arrangements post discharge and family will transport her home. Informed patient she has a right to participate in all discharge planning. Patient verbalized understanding. Addendum: 06/18/20 at 1616 by JONATHAN HALL Amended: Links added.
--- NOTE | 2020-06-18 19:14 | NUR ---
Opening Shift Note Assumed care of patient. Patient is awake, alert, and oriented X 4. Patient No S/S of respiratory distress, pain, nausea noted or reported. On RA. Respirations are regular and non-labored. Bed in lowest position, brakes locked, side rails X 2 up, call light within reach. Instructed on POC and to call for assistance PRN. Will continue to monitor for changes Q1hr and PRN.
--- NOTE | 2020-06-18 19:32 | NUR ---
RT NOTE PT WAS SEEN BY RT FOR PRN HHN TX. PT STATES NO SOB AT THIS TIME. PT STATES SHE AWARE TO CALL IF TX NEEDED. POX 97% ON ROOM AIR. CONT PRN NEEDED Addendum: 06/18/20 at 1934 by Dafne Webber RT Amended: Links added.
--- NOTE | 2020-06-18 23:10 | NUR ---
IV DC'd/insertion IV L. forearm DC'd due to malfunctioning and burning sensation reported by patient. Sterile technique used; catheter fully intact. Pressure dressing applied to the site and CO band wrapped. Patient tolerated procedure well. New IV access obtained via sterile technique by inserting 22 gauge catheter at R. forearm. IV secured properly. No trauma to the site. Patient tolerated procedure well.
[2020-06-19] VITALS (7 sets, daily range): BP systolic 112–142; BP diastolic 81–95
[2020-06-19 05:36] LABS: Basophils # (auto) 0.1 10 ^3/uL (0-0.2); Basophils % (auto) 1.1 % (0.0-2.0); Eosinophils # (auto) 0.3 10 ^3/uL (0-0.8); Eosinophils % (auto) 4.1 % (0.0-7.0); Hematocrit 42.1 % (36.0-46.0); Hemoglobin 14.1 g/dL (12.2-16.2); Lymphocytes # (auto) 3.1 10 ^3/uL (0.4-5.4); Mean Corpuscular Hemoglobin 29.5 pg (28.0-32.0); Mean Corpuscular Hgb Conc. 33.5 g/dL (32.0-36.0); Monocytes # (auto) 0.5 10 ^3/uL (0-1.3); Monocytes % (auto) 7.8 % (0.0-12.0); Neutrophils # (auto) 2.3 10 ^3/uL (1.6-8.6); Nucleated Red Blood Cells % 0.1 %; Platelet Count (auto) 164 10^3/uL (140-450); Red Blood Cells 4.78 10^6/uL (4.0-5.20); Red Cell Distribution Width 14.7 % (11.8-14.3); White Blood Cell 6.1 10^3/uL (4.4-10.8)
[2020-06-19] MEDS: ACCU-CHEK COMFORT CURVE STRIP VI SCH ×2 (05:47→11:21)
[2020-06-19] MEDS: InsuLIN REG 1unit/0.01ml Soln (100units/ml) SC SCH ×3 (05:47→11:15)
[2020-06-19 05:51] LABS: Albumin 3.3 g/dL (3.4-5.0); Calcium 8.8 mg/dL (8.5-10.1); Potassium 3.8 mmol/L (3.5-5.1)
[2020-06-19 05:59] LABS: BUN/Creatinine Ratio 11.4; Bilirubin, Total 0.8 mg/dL (0.2-1.0); Total Protein 6.1 g/dL (6.4-8.2)
[2020-06-19] MEDS ORDERED: GOLYTELY 4L KIT PO ONE (06:00)
[2020-06-19] MEDS: D5W/ SOD CHL 0.9%/KCL 20MEQ 1,000 ML IV SCH (06:13)
[2020-06-19] MEDS: SUCRALFATE 1 GM/10 ML ORAL SUSP PO SCH ×2 (06:31→10:53)
--- NOTE | 2020-06-19 08:20 | NUR ---
PT. ASSESSED FOR PRN. MN. TX., NO RESP. DISTRESS OR SOB NOTED. PT. STATES SHE HAS BEEN GOING TO THE BATHROOM ALL MORNING. PT. STATES ALSO SHE IS GOING TO HAVE COLONOSCOPY TODAY. BS. ARE CLEAR, PT. IS ON RA SP02 96%,HR 82,RR 18. PRN. TX. NOT INDICATED AT THIS TIME. PT. IS AWARE SHE MAY CALL IF NEEDED. NO TX. GIVEN AT THIS TIME.
[2020-06-19] MEDS ORDERED: diphenhdrAMINE HCL 50 MG/1 ML VL ONE (08:58)
[2020-06-19] MEDS ORDERED: LIDOCAINE VISCOUS 2% 15ML UD ONE (08:58)
[2020-06-19] MEDS ORDERED: SODIUM CHLORIDE LOCK 10 ML ONE (08:58)
[2020-06-19] MEDS ORDERED: ONDANSETRON HCL 4 MG/2 ML VIAL ONE (09:49)
[2020-06-19] MEDS ORDERED: ONDANSETRON HCL 4 MG/2 ML VIAL IV ONE (09:50)
[2020-06-19] MEDS: fentaNYL CITRATE 100 MCG/2 ML VL ONE ×3 (09:52→10:04)
[2020-06-19] MEDS: MIDAZOLAM HCL 5 MG/ML-1ML VIAL ONE ×3 (09:52→10:04)
[2020-06-19] MEDS ORDERED: levoFLOXacin 500MG 100 ML IV SCH (10:00)
--- NOTE | 2020-06-19 10:45 | NUR ---
Patient came back from OR s/p EGD and colonoscopy. PT is drowsy and verbally responsive. skin is warm and dry to touch. No c/o of pain at this time. No respiratory distress noted. BS 150, no s/s of hyperglycemia or hypoglycemia noted. dr. Benito at bedside discussed with patient about DC planning, pt agreed to DC home in the afternoon.
[2020-06-19] MEDS: PANTOPRAZOLE 40 MG TAB PO SCH (10:53)
[2020-06-19] MEDS: INSULIN LANTUS (GLARGINE) 1 /0.01ml (100units/ml) SC SCH (11:14)
[2020-06-19] MEDS ORDERED: SUCR1TAB22 PO (11:22)
[2020-06-19] MEDS ORDERED: PANT40T PO (11:22)
[2020-06-19] MEDS ORDERED: LEVO-28 PO (11:22)
--- NOTE | 2020-06-19 16:35 | NUR ---
Discharge instructions given as ordered. Encourage to follow up with PMD in [place] as instructed. All questions and concerns addressed. Patient verbalized understanding. Medication reconciliation form completed and copy given to patient. IV removed with catheter intact, pressure dressing applied. Patient taken to vehicle via wheelchair with all personal belongings, accompanied by staff and family member. No distress noted at time of departure.
== END 2020-06-19 16:35 | disposition home or self-care (01) | DRG 392 ==
LOC: ER 18:39 → TELE 18:40 → TELE-EAST 06-16 05:00 → EAST 06-17 17:51 → CENTRAL 06-17 19:55
PROVIDERS: ADMIT Hospitalist; ATTEND Internal Medicine
PROC: 0DB68ZX Excision of Stomach, Via Natural or Artificial Opening Endoscopic, Diagnostic (ICD-10-PCS; principal; 2020-06-19 09:43)
PROC: 0DJD8ZZ Inspection of Lower Intestinal Tract, Via Natural or Artificial Opening Endoscopic (ICD-10-PCS; 2020-06-19 09:43)
DX: K29.70 Gastritis, unspecified, without bleeding (principal); E87.2 Acidosis; N17.9 Acute kidney failure, unspecified; K57.30 Diverticulosis of large intestine without perforation or abscess without bleeding; K76.0 Fatty (change of) liver, not elsewhere classified; K29.80 Duodenitis without bleeding; E11.65 Type 2 diabetes mellitus with hyperglycemia; E66.01 Morbid (severe) obesity due to excess calories; Z90.49 Acquired absence of other specified parts of digestive tract; Z90.710 Acquired absence of both cervix and uterus; Z03.818 Encounter for observation for suspected exposure to other biological agents ruled out; Z86.19 Personal history of other infectious and parasitic diseases; Z79.899 Other long term (current) drug therapy; Z68.34 Body mass index [BMI] 34.0-34.9, adult
CPT/HCPCS: 36415; 71045; 74177; 80053; 81001; 82150; 82270; 82728; 82962; 83036; 83605; 83615; 83690; 83735; 84484; 85007; 85025; 85027; 85379; 85610; 85730; 86141; 87040; 87081; 87086; 87088; 87186; 93005; 93970; 94640; 96361; 96365; 96368; 96372; 96375; 96376; G0378; J1100; J1815; J1956; J2250; J2405; J7060